=== PATIENT | female | born 1985 | race Caucasian/White ===

== ENCOUNTER 2016-12-03 15:56 | Emergency (ER) | payer MEDICAID | END 2016-12-03 18:22 | disposition left against medical advice (07) | LOC: FASTR 15:56 | DX: A59.01 Trichomonal vulvovaginitis (principal); A56.02 Chlamydial vulvovaginitis | CPT/HCPCS: 87491; 87591; 87800 ==

== ENCOUNTER 2016-12-06 09:11 | Emergency (ER) | payer MEDICAID ==
[2016-12-06] MEDS ORDERED: ONDANSETRON ODT 4 MG TAB ONE (12:42)
[2016-12-06] MEDS ORDERED: METRONIDAZOLE 500 MG TAB ONE (12:42)
== END 2016-12-06 12:47 | disposition home or self-care (01) ==
LOC: ER 09:11
DX: A59.01 Trichomonal vulvovaginitis (principal)
CPT/HCPCS: 87491; 87591; 87800